=== PATIENT | female | born 1955 | race Two or more races ===

== ENCOUNTER 2019-01-13 05:10 | Day surgery (SDC) | payer OTHER ==
[~2019-01-13 05:10] MED LIST: AMLODIPINE BESY10 MG PO; CALCIUM 1,0001 EACH PO; IRBESARTAN-HCT1 EAC1 PO; LIPITOR40 MG PO; PROTONIX20 MG PO; PROVENTIL HFA6.7 GM IH; REGLAN5 MG/5 ML PO; VERAPAMIL ER120 MG PO; VITAMIN E400 UNIT PO; ZANTAC150 M3 PO
[2019-01-13] MEDS ORDERED: PERCOCET 5-3251 EACH PO (08:51)
[2019-01-13] MEDS ORDERED: NEURONTIN300 MG PO (08:52)
[2019-01-13] MEDS ORDERED: RECTICARE30 GM TOP (08:54)
== END 2019-01-13 16:35 | disposition home or self-care (01) ==
LOC: CIR.AMB 05:10
DX: K62.0 Anal polyp (principal)